=== PATIENT | female | born 1945 | race Caucasian/White ===

== ENCOUNTER 2023-10-31 17:50 | Emergency (ER) | payer MEDICARE ==
[~2023-10-31] VITALS: Ht 162.6 cm; Wt 54.0 kg
[2023-10-31 18:07] VITALS: BP 125/80
[2023-10-31] MEDS ORDERED: KEFLEX500 MG PO (18:26)
[2023-10-31 18:30] VITALS: BP 127/71
[2023-10-31] MEDS ORDERED: CEPHALEXIN MONOHYDRATE 500 MG/CAP PO ONE (18:30)
[2023-10-31 18:55] VITALS: BP 125/80
== END 2023-10-31 19:07 | disposition home or self-care (01) ==
LOC: ED 17:50
DX: L03.114 Cellulitis of left upper limb (principal)